=== PATIENT | female | born 1960 | race African-American/Black ===

== ENCOUNTER 2017-08-05 16:55 | Emergency (ER) | payer MEDICAID, OTHER ==
[~2017-08-05] VITALS: Ht 175.3 cm; Wt 118.6 kg
[2017-08-05] MEDS ORDERED: ALBU2.5V13 IH (17:03)
[2017-08-05 19:35] LABS: BASOPHILS % 0.5 % (0.0-2.0); HEMATOCRIT. 38.5 % (36.0-48.0); HEMOGLOBIN. 11.9 g/dL (12.0-16.0); LYMPHOCYTES % 21.5 % (20.0-50.0); MEAN CORPUSCULAR VOLUME 74.1 fL (81.0-99.0); MONOCYTES % 5.9 % (2.0-8.0); NEUTROPHILS % 71.1 % (40.0-76.0); PLATELET 199 x1000/uL (130-400); RED BLOOD CELL COUNT 5.19 mill/uL (4.2-5.4)
[2017-08-05 19:44] LABS: CHLORIDE 106 mEq/L (98-107)
[2017-08-05 19:48] LABS: CARBON DIOXIDE 30 mEq/L (21-32)
[2017-08-05 19:52] LABS: CREATINE KINASE 68 IU/L (26-192)
[2017-08-05 19:53] LABS: TROPONIN I < 0.02 ng/mL (0.00-0.04)
[2017-08-05 20:43] VITALS: BP 127/93
== END 2017-08-05 21:18 | disposition home or self-care (01) ==
LOC: ER 16:55
DX: R20.9 Unspecified disturbances of skin sensation (principal); R42 Dizziness and giddiness; J45.909 Unspecified asthma, uncomplicated
CPT/HCPCS: 36415; 70450; 71010; 80053; 82550; 83605; 84484; 85025; 93005; 99285; Z7610

== ENCOUNTER 2019-02-21 13:17 | Emergency (ER) | payer MEDICAID, OTHER ==
[~2019-02-21] VITALS: Ht 170.2 cm; Wt 118.0 kg
[~2019-02-21 13:17] MED LIST: ALBU2.5V13 IH
[2019-02-21] MEDS ORDERED: ONDANSETRON HCL 4MG/2ML INJ IV STA (14:31)
[2019-02-21] MEDS ORDERED: FAMOTIDINE 20MG/2ML VIAL IV STA (14:31)
[2019-02-21] MEDS ORDERED: SODIUM CHLORIDE 0.9% 1,000 ML IV ONE (14:31)
[2019-02-21] MEDS ORDERED: MAGNESIUM/ALUMINUM HYDROXIDE/SIMETHICONE 30ML UDC PO STA (14:31)
[2019-02-21 14:47] LABS: BASOPHILS % 0.9 % (0.0-2.0); EOSINOPHILS % 3.3 % (0.0-5.0); HEMATOCRIT. 43.4 % (36.0-48.0); HEMOGLOBIN. 13.7 g/dL (12.0-16.0); LYMPHOCYTES % 26.6 % (20.0-50.0); MEAN CORPUSCULAR HEMOGLOBIN 23.7 pg (28.0-32.0); MEAN CORPUSCULAR VOLUME 75.2 fL (81.0-99.0); MEAN PLATELET VOLUME 8.5 fl (7.4-10.4); NEUTROPHILS % 64.2 % (40.0-76.0); PLATELET 224 x1000/uL (130-400); RED BLOOD CELL COUNT 5.77 mill/uL (4.2-5.4); RED CELL DISTRIBUTION WIDTH 15.9 % (11.6-14.6)
[2019-02-21 14:55] LABS: PROTHROMBIN TIME 9.9 sec (9.6-11.0)
[2019-02-21 14:59] LABS: CHLORIDE 105 mEq/L (98-107)
[2019-02-21 16:07] VITALS: BP 105/80
== END 2019-02-21 16:22 | disposition home or self-care (01) ==
LOC: ER 13:17
DX: R10.13 Epigastric pain (principal); N32.89 Other specified disorders of bladder; J45.909 Unspecified asthma, uncomplicated
CPT/HCPCS: 36415; 76705; 80053; 83690; 85025; 85610; 93005; 96361; 96374; 96375; 99284; J2405; J3490; J7030

== ENCOUNTER 2020-08-20 15:21 | Emergency (ER) | payer MEDICAID, OTHER ==
[~2020-08-20] VITALS: Ht 167.6 cm; Wt 87.0 kg
[2020-08-20] MEDS ORDERED: ASPIRIN 81MG TABLET PO ONE (16:15)
[2020-08-20 16:58] LABS: BASOPHILS % 0.3 % (0.0-2.0); EOSINOPHILS % 1.7 % (0.0-5.0); HEMATOCRIT. 39.7 % (36.0-48.0); HEMOGLOBIN. 12.2 g/dL (12.0-16.0); LYMPHOCYTES % 22.7 % (20.0-50.0); MEAN CORPUSCULAR HEMOGLOBIN 23.1 pg (28.0-32.0); MEAN CORPUSCULAR VOLUME 75.4 fL (81.0-99.0); MONOCYTES % 5.1 % (2.0-8.0); NEUTROPHILS % 70.2 % (40.0-76.0); PLATELET 175 x1000/uL (130-400); RED BLOOD CELL COUNT 5.27 mill/uL (4.2-5.4); RED CELL DISTRIBUTION WIDTH 15.8 % (11.6-14.6)
[2020-08-20 17:00] LABS: CHLORIDE 104 mEq/L (98-107)
[2020-08-20 20:25] VITALS: BP 169/95
== END 2020-08-20 20:49 | disposition home or self-care (01) ==
LOC: ER 15:21
DX: R07.9 Chest pain, unspecified (principal); R20.2 Paresthesia of skin; I10 Essential (primary) hypertension; J45.909 Unspecified asthma, uncomplicated
CPT/HCPCS: 36415; 71045; 80053; 83880; 84484; 85025; 85651; 86140; 93005; 99285; Z7610

== ENCOUNTER 2022-11-08 23:22 | Emergency (ER) | payer MEDICAID, OTHER ==
[~2022-11-08] VITALS: Ht 170.2 cm; Wt 130.5 kg
[2022-11-09 01:37] LABS: BASOPHILS % 0.3 % (0.0-2.0); EOSINOPHILS % 1.5 % (0.0-5.0); HEMATOCRIT. 40.2 % (36.0-48.0); HEMOGLOBIN. 12.6 g/dL (12.0-16.0); LYMPHOCYTES % 24.4 % (20.0-50.0); MEAN CORPUSCULAR HEMOGLOBIN 23.7 pg (28.0-32.0); MEAN CORPUSCULAR VOLUME 75.5 fL (81.0-99.0); MEAN PLATELET VOLUME 9.3 fl (7.4-10.4); NEUTROPHILS % 67.8 % (40.0-76.0); PLATELET 219 x1000/uL (130-400); RED BLOOD CELL COUNT 5.32 mill/uL (4.2-5.4); RED CELL DISTRIBUTION WIDTH 17.5 % (11.6-14.6)
[2022-11-09 02:07] LABS: CHLORIDE 107 mEq/L (98-107)
[2022-11-09] MEDS ORDERED: SODIUM CHLORIDE 0.9% 1,000 ML IV ONE (02:30)
[2022-11-09 06:00] VITALS: BP 127/70
== END 2022-11-09 06:34 | disposition home or self-care (01) ==
LOC: ER 23:22
DX: R00.2 Palpitations (principal); J45.909 Unspecified asthma, uncomplicated; I10 Essential (primary) hypertension
CPT/HCPCS: 36415; 71045; 80053; 83605; 83880; 84484; 85025; 85379; 93005; 93970; 99285; J7030; Z7610

== ENCOUNTER 2024-10-06 13:25 | Emergency (ER) | payer OTHER, MEDICAID ==
[~2024-10-06] VITALS: Ht 170.2 cm; Wt 117.9 kg
[2024-10-06 13:28] VITALS: O2SAT 96
[2024-10-06 15:55] LABS: BASOPHILS % 0.6 % (0.0-2.0); DIFFERENTIAL COMMENT 0; EOSINOPHILS % 2.7 % (0.0-5.0); HEMOGLOBIN. 11.8 g/dL (12.0-16.0); LYMPHOCYTES % 25.4 % (20.0-50.0); MEAN CORPUSCULAR HEMOGLOBIN 23.4 pg (28.0-32.0); MEAN CORPUSCULAR HGB CONC 30.4 g/dL (31.0-37.0); MEAN PLATELET VOLUME 9.1 fl (7.4-10.4); MONOCYTES % 6.8 % (2.0-8.0); NEUTROPHILS % 64.5 % (40.0-76.0); PLATELET 199 x1000/uL (130-400); RED BLOOD CELL COUNT 5.06 mill/uL (4.2-5.4); RED CELL DISTRIBUTION WIDTH 16.4 % (11.6-14.6); WHITE BLOOD COUNT 8.2 x1000/uL (4.5-11.0)
[2024-10-06 16:01] LABS: CHLORIDE 106 mEq/L (98-107); POTASSIUM 4.7 mEq/L (3.5-5.1); SODIUM 140 mEq/L (136-145)
[2024-10-06 16:02] LABS: CARBON DIOXIDE 30 mEq/L (21-32)
[2024-10-06 16:03] LABS: CALCIUM 8.8 mg/dL (8.7-10.4)
[2024-10-06 16:07] LABS: CREATININE 0.7 mg/dL (0.6-1.0)
[2024-10-06 16:08] LABS: GLUCOSE 98 mg/dL (70-105); UREA NITROGEN BLOOD 8 mg/dL (9-23)
[2024-10-06 16:10] LABS: TROPONIN I HIGH SENSITIVITY < 4 ng/L (3.0-34)
[2024-10-06] MEDS ORDERED: ALBU90AE INH (17:24)
[2024-10-06 18:03] VITALS: BP 176/93; PULSE 84; RESP 18; TEMP 36.8; O2SAT 96
== END 2024-10-06 18:04 | disposition home or self-care (01) ==
LOC: ER 13:25
DX: R07.89 Other chest pain (principal); I10 Essential (primary) hypertension; J45.909 Unspecified asthma, uncomplicated; Z79.899 Other long term (current) drug therapy
CPT/HCPCS: 36415; 71045; 80048; 84484; 85025; 93005; 99285